=== PATIENT | female | born 1945 | race Caucasian/White ===

== ENCOUNTER 2016-12-06 12:17 | Inpatient (IN) ==
[2016-12-06] MEDS ORDERED: *HR* HYDROmorphone (PF) 1 MG/ML SYRINGE IVP ONE ×2 (16:09→23:12)
[2016-12-06] MEDS ORDERED: Naloxone 0.4 MG/ML INJ IVP PRN ×2 (16:10→20:09)
[2016-12-06] MEDS ORDERED: *HR* Morphine 2 MG/ML SYRINGE IVP PRN ×2 (16:10→20:09)
[2016-12-06] MEDS ORDERED: *HR* HYDROmorphone (PF) 1 MG/ML SYRINGE IVP PRN ×2 (16:10→19:23)
[2016-12-06] MEDS ORDERED: Ondansetron 4 MG/2 ML VIAL IVP PRN (16:10)
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
--- NOTE | 2016-12-06 16:47 | Orthopedic Consult Note ---
Date of Encounter: 12/06/16 Time of Encounter: 16:00 Assessment and Plan (1) Femur fracture, left Current Visit: Yes Status: Acute Patient is comfortable in bed. Plan discussed. Surgical intervention recommended due to severity of displacement and impact on daily activities. Consent reviewed and signed by the patient - all questions were addressed and answered. Risks versus benefits reviewed. Plan for Left hip TFN today with Discussed plan with . Continue NPO, evans catheter, NWB. Labs reviewed. Stable for OR. Cleared by hospitalist. Qualifiers: Encounter type: initial encounter Femur location: unspecified portion of femur Fracture type: closed Fracture morphology: unspecified fracture morphology Qualified Code(s): S72.92XA - Unspecified fracture of left femur, initial encounter for closed fracture History of Present Illness Chief complaint: Fall HPI: Ms. Castro is a 71 year old female, history of COPD, HTN, Asthma and GERD. She was transferred from [facility] after a mechanical fall this morning trying to do her laundry. She lives independently, and functions well. She ambulates on her own. No significant history of fractures or trauma. When she fell, she landed directly on her Left Hip, and heard a loud snap. She was in extreme pain, and unable to get up or weightbear due to her pain. She denies LOC, syncope or dizziness. She denies CP, SOB. She denies N/T into lower extremity. She currently has a evans catheter in place, obtaining EKG and labs Past Med Surg Social Fam HX - Past Medical History Medical history: asthma, COPD, GERD, hypertension Psychiatric history: depression - Past Surgical History Surgical History: appendectomy, cholecystectomy, hysterectomy, knee replacement - Social History Smoking Status: Former smoker Smokeless Tobacco Status: No Alcohol use: none Drug use: none Medications and Allergies Carvedilol [Coreg] 25 mg PO BID 12/06/16 [History] Duloxetine HCl [Cymbalta] 90 mg PO HS 12/06/16 [History] Fluticasone/Salmeterol [Advair 250-50 Diskus] 1 puff IH BID 12/06/16 [History] Ipratropium/Albuterol Neb [Duoneb] 3 ml IH Q4HR 12/06/16 [History] Pantoprazole Sodium [Protonix] 40 mg PO DAILY 12/06/16 [History] Ranitidine HCl [Acid Corporate Counsel] 150 mg PO BID 12/06/16 [History] Triamcinolone Acetonide 1 appl TP BID 12/06/16 [History] Allergies codeine Allergy (Verified 12/06/16 17:13) See Comments Patient states this medication "makes her heart race" All Systems Reviewed: A 10-system review of systems was performed and is negative for pertinent findings except as documented above in the HPI. - Constitutional Constitutional: as per HPI - Cardiovascular Cardiovascular: as per HPI Physical Exam - Constitutional Vitals: Temp Pulse Resp BP Pulse Ox 98.0 F 70 17 131/59 88 12/06/16 14:35 12/06/16 14:35 12/06/16 14:35 12/06/16 14:35 12/06/16 14:35 - Fracture left hip Location of fracture: Left Intertrochanteric femur Appearance: swelling, other Compartments: soft Distal extremity neurovascularly intact: Yes Proximal joint involvement: No Distal joint involvement: No Results - Labs Result Diagrams: 12/06/16 17:26 12/06/16 17:26 Labs: All other labs normal. - Diagnostic results Hip x-ray: report reviewed, image reviewed (Significantly displaced proximal femur and intertrochenteric fracture) Consult Discharge Plan - Plan Referrals: Lily Escoto CNP [Primary Care Provider] -
[2016-12-06 16:56] LABS: Bilirubin,Urine Small (Negative); Blood,Urine Large (Negative); Clarity,Urine Cloudy (Clear); Color,Urine Dark Yellow (Yellow); Glucose,Urine (UA) Normal (Normal); Ketones,Urine Negative (Negative); Leukocyte Esterase,Urine Negative (Negative); Nitrite,Urine Negative (Negative); Protein,Urine 30 mg/dL (Neg-Trace); Urobilinogen,Urine Normal (Normal)
[2016-12-06 17:01] LABS: Bacteria,Urine None Seen per hpf (None-Few); Hyaline Casts,Urine Moderate per lpf (None-Few); Squamous Epithelial Cell,Urine Many per lpf (None-Few); WBC,Urine 15-30 per hpf (0-3)
[2016-12-06 17:10] LABS: RBC,Urine 50-100 per hpf (0-3)
[2016-12-06] MEDS ORDERED: *HR* Propofol 200 MG/20 ML VIAL IVP ONE (17:18)
[2016-12-06] MEDS ORDERED: *HR* Succinylcholine 200 MG/10 ML VIAL IVP ONE (17:18)
[2016-12-06] MEDS ORDERED: *HR* FentaNYL (PF) 100 MCG/2 ML VIAL ONE (17:18)
[2016-12-06] MEDS ORDERED: Lidocaine -MPF 2% 2 ML VIAL ONE (17:18)
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
[2016-12-06 17:35] LABS: Basophils % 0.2 %; Eosinophils % 0.2 %; Hematocrit 36.9 % (35.3-44.9); Immature Granulocytes % 0.4 % (0-4); Lymphocytes # 0.7 K/mcL (0.6-4.6); Lymphocytes % 5.8 %; Mean Corpuscular HGB Conc 32.5 g/dL (31.6-35.5); Mean Corpuscular Hemoglobin 28.5 pg (28.0-33.3); Mean Corpuscular Volume 87.6 fL (83.0-100.0); Mean Platelet Volume 9.1 fL (9.4-12.4); Monocytes # 1.1 K/mcL (0.0-1.3); Monocytes % 8.6 %; Neutrophils # 10.3 K/mcL (1.6-8.9); Platelet Count 244 K/mcL (140-400); Red Blood Count 4.21 M/mcL (3.82-4.97); Red Cell Distribution Width 14.3 % (11.5-14.5); Segmented Neutrophils % 84.8 %
[2016-12-06 17:43] LABS: INR 1.1; Prothrombin Time 11.5 Seconds (9.4-12.1)
[2016-12-06 17:46] LABS: Activated Partial Thrombo Time 29.8 Seconds (26.0-36.0)
[2016-12-06 17:57] LABS: BUN/Creatinine Ratio 23 (6-26); Blood Urea Nitrogen 14 mg/dL (7-20); Calcium 8.9 mg/dL (8.6-10.8); Carbon Dioxide 21 mEq/L (19-29); Chloride 107 mEq/L (98-109); Glucose 123 mg/dL (70-99); Osmolality,Calculated 286 (280-300); Potassium 5.1 mEq/L (3.5-4.5); Sodium 137 mEq/L (136-145); eGFR For African Americans > 60 (> 60); eGFR For Non-African Americans > 60 (> 60)
[2016-12-06 17:58] LABS: Magnesium 2.1 mg/dL (1.6-2.6)
[2016-12-06] MEDS ORDERED: Ringers Solution, Lactated 1,000 ML IVC SCH ×2 (18:00→20:09)
[2016-12-06] MEDS ORDERED: Dexmedetomidine HCl 200 MCG/50 ML MLS IVC ONE (18:05)
[2016-12-06] MEDS ORDERED: Ketamine *HR* 500 MG/10 ML MDV ONE (18:11)
[2016-12-06] MEDS ORDERED: Ondansetron 4 MG/2 ML VIAL ONE (18:25)
[2016-12-06] MEDS ORDERED: Dexamethasone 4 MG/ML VIAL ONE (18:25)
--- NOTE | 2016-12-06 18:44 | Orthopedic Operative Note ---
Date of procedure: 12/06/16 Pre-op diagnosis: Displaced left subtrochanteric hip fracture Post-op diagnosis: same Procedure: Procedure: Left hip open reduction intramedullary nail fixation Estimated blood loss: 300 cc Hardware:Synthes 10 x 270 TFN, 100 helical blade, 36 distal locking bolt one super cable Procedural Notes: Fracture was identified and reduced with the super cable. Was a displaced subtotal. Operative procedure: The patient was brought to the operating room and placed on the operating room table. After general anesthesia was administered the well leg was place in the well leg betancourt and the operative leg was placed in the fracture leg betancourt. All pressure points were padded appropriately. The operative extremity was prepped and draped in the sterile surgical fashion patient received IV antibiotic prior to skin incision. A standard direct lateral approach was made over the entry point of the greater trochanter, the incision was made through the skin and subcutaneous tissue hemostasis was obtained with Bovie cautery. Using careful sharp dissection the fascia was identified and incised, flouroscopic assistance was used to identify the entry point. Incision was taken down distally at the level of the fracture site. The fracture was exposed and reduced with a super cable. This gained preliminary fixation. The guidepin was placed at the entry point using fluroscopic assistance, it was over reamed with the proximal reamer. The 10 x 270 trochanteric femoral nail was placed through the entry hole, across the fracture site into the distal fragment. the position was confirmed with fluroscopy. A guide pin was placed through the proximal locking guide from the lateral femur through the nail across the fracture site into the femoral head, it was over reamed with the reamer. The helical blade was placed over the guide pin through the nail into the femoral head, locked in place with the proximal locking bolt. Distal locking bolt was placed through the distal locking guide. position of hardware and fracture reduction found to be acceptable with fluroscopic assistance. The wound was irrigated. Fascia was closed with a running #2 PDS suture. The deep tissue was irrigated and closed deep with #1 PDS suture superficially with 0 PDS suture and skin was closed with skin rochelle. The patient was placed in a sterile dressing The patient was extubated and transferred to the recovery room in stable condition. Anesthesia: GETA Surgeon: Pablito Carrillo Condition: stable Disposition: PACU
[2016-12-06] MEDS ORDERED: *HR* Phenylephrine 10 MG/ML VIAL ONE (18:48)
[2016-12-06] MEDS ORDERED: *HR* Morphine 10 MG/ML VIAL ONE (18:59)
[2016-12-06] MEDS ORDERED: Calcium Gluconate 1,000 MG in D5% in Water 100 ML IVPB ONE (19:15)
--- NOTE | 2016-12-06 19:48 | Anesthesia Evaluation Post Op ---
Date of Encounter: 12/06/16 Time of Encounter: 19:46 - Vital Signs Vital Signs: Vital Signs/O2 Sat, Most Current Temp Pulse Resp BP Pulse Ox 100.8 F H 73 14 98/50 93 12/06/16 19:07 12/06/16 19:27 12/06/16 19:27 12/06/16 19:17 12/06/16 19:27 - Lungs Lungs: Clear Ascult./Percussion - Airway Airway: Non-obstructed - Cardiovascular Regular Rate - Mental Status Mental Status: Asleep with brisk response to light stimulation - Pain Pain Scale: 7 Pain Scale used: Numeric (1 - 10) - Nausea Vomiting Nausea Vomiting: Not Present - Hydration Hydration: NPO (has not been offered ice chips at this time), Has not voided - Discharge PostOp Status: Transfer Patient to floor
[2016-12-06] MEDS ORDERED: 0.9 % Sodium Chloride 500 ML IVC ONE (20:09)
[2016-12-06] MEDS: *HR* HYDROmorphone (PF) 1 MG/ML SYRINGE IVP PRN (21:12)
[2016-12-06] MEDS ORDERED: Artificial Tears SOLN 15 ML BOTTLE RIGHT EYE PRN (23:12)
[2016-12-06] MEDS ORDERED: Sod Borate/Boric acid/NaCl 118 ML IRRIG.SOLN OP ONE (23:12)
[2016-12-06] MEDS: ceFAZolin 2,000 MG in D5% in Water 100 ML IVPB SCH (23:51)
[2016-12-07] MEDS: Ipratropium/Albuterol Neb 3 ML IH SCH ×7 (00:03→23:46)
[2016-12-07] MEDS ORDERED: *HR* OxyCODONE Immed Rel 5 MG TABLET PO ONE (01:10)
[2016-12-07] MEDS: *HR* HYDROmorphone (PF) 1 MG/ML SYRINGE IVP PRN ×3 (04:43→16:37)
[2016-12-07] MEDS: Artificial Tears SOLN 15 ML BOTTLE RIGHT EYE PRN ×2 (04:44→08:32)
[2016-12-07 05:59] LABS: Hematocrit 28.8 % (35.3-44.9)
[2016-12-07 06:03] LABS: Hemoglobin 9.2 g/dL (11.5-15.4)
[2016-12-07] MEDS ORDERED: Tetracaine 0.5% OPTH 80 DROP/4 ML BOTTLE RIGHT EYE PRN (06:41)
--- NOTE | 2016-12-07 06:50 | Orthopedics Progress Note ---
Date of Encounter: 12/07/16 Time of Encounter: 06:50 Subjective Interval history: Patient was seen this morning doing well without complaints. Afebrile vital signs stable. Operative extremity: Neurovascularly intact Dressing clean dry and intact Calves nontender Assessment and plan: Continue with postoperative care Hematocrit 29 nonweightbearing left lower extremity Objective Vital signs: Vital Signs Temp Pulse Resp BP Pulse Ox 12/07/16 05:07 18 93 12/07/16 03:22 99 F 83 20 135/76 93 12/07/16 00:03 16 98 12/06/16 23:48 98.1 F 84 15 131/50 96 12/06/16 22:55 97.6 F 83 16 126/54 94 12/06/16 21:15 98.7 F 77 16 108/59 96 12/06/16 20:41 98.2 F 73 15 106/47 97 12/06/16 20:10 98 F 62 15 102/47 93 12/06/16 19:47 99.5 F 71 15 97/57 94 12/06/16 19:37 99.4 F 72 14 95/45 94 12/06/16 19:27 73 14 92/42 93 12/06/16 19:17 71 14 98/50 94 12/06/16 19:07 100.8 F H 72 16 94/44 96 12/06/16 14:35 98.0 F 70 17 131/59 88 12/06/16 14:03 97.8 F 73 16 131/54 92 Intake and Output 12/06/16 12/06/16 12/07/16 15:59 23:59 07:59 Intake Total 0 / 0 100 / 100 Output Total 100 / 100 300 / 300 Balance 0 / 0 -100 / -100 -200 / -200 Intake: IV Fluids 100 / 100 Ancef 2,000 MG In 100 / 100 Dextrose 5% 100 ML @ 200 mls/hr IVPB Q8HR [facility] Rx#: [id number] Oral 0 / 0 Output: Estimated Blood Loss 100 / 100 Catheter 300 / 300 Other: Weight 83.461 kg - Labs CBC & BMP: 12/07/16 05:42 12/06/16 17:26 Labs: Abnormal lab results WBC 12.2 K/mcL (4.3-11.1) H 12/06/16 17:26 Hgb 9.2 g/dL (11.5-15.4) L D 12/07/16 05:42 Hct 28.8 % (35.3-44.9) L 12/07/16 05:42 MPV 9.1 fL (9.4-12.4) L 12/06/16 17:26 Neutrophils # 10.3 K/mcL (1.6-8.9) H 12/06/16 17:26 Potassium 5.1 mEq/L (3.5-4.5) H 12/06/16 17:26 Glucose 123 mg/dL (70-99) H 12/06/16 17:26 Urine Clarity Cloudy (Clear) A 12/06/16 16:45 Ur Specific [facility] 1.030 (1.010-1.025) H 12/06/16 16:45 Urine Protein 30 mg/dL (Neg-Trace) H 12/06/16 16:45 Urine Blood Large (Negative) H 12/06/16 16:45 Urine Bilirubin Small (Negative) H 12/06/16 16:45 Urine Microscopic RBC 50-100 per hpf (0-3) H 12/06/16 16:45 Urine Microscopic WBC 15-30 per hpf (0-3) H 12/06/16 16:45 Ur Squamous Epith Cells Many per lpf (None-Few) H 12/06/16 16:45 Hyaline Casts Moderate per lpf (None-Few) H 12/06/16 16:45 - VTE Documentation of Mechanical Device: Venous foot pump, device Consult Discharge Plan - Plan Referrals: Lily Escoto, BODY AND FRAME TECHNICIAN [Primary Care Provider] -
[2016-12-07] MEDS: Budesonide/Formoterol 80/4.5 MDI IH SCH ×2 (07:59→19:57)
--- NOTE | 2016-12-07 08:01 | Internal Med Progress Note ---
<Javi Berrios - Last Filed: 12/07/16 09:46> Date of Encounter: 12/07/16 Time of Encounter: 08:01 - Assessment and plan (1) Femur fracture, left Current Visit: Yes Status: Acute Assessment and plan: Patient is status post left femur fracture repair. She is stable and participating with physical therapy. - Surgical wound is dressed and healing appropriately. - Pain control per orthopedic surgery - Continue physical therapy - SNF placement post discharge. Qualifiers: Encounter type: initial encounter Femur location: unspecified portion of femur Fracture type: closed Fracture morphology: unspecified fracture morphology Qualified Code(s): S72.92XA - Unspecified fracture of left femur, initial encounter for closed fracture (2) COPD (chronic obstructive pulmonary disease) Current Visit: Yes Status: Acute Assessment and plan: Stable. Continue home medications. - Patient is tolerating room air. Qualifiers: COPD type: unspecified COPD Qualified Code(s): J44.9 - Chronic obstructive pulmonary disease, unspecified (3) HTN (hypertension) Current Visit: Yes Status: Chronic Assessment and plan: Hold antihypertensives as patient's blood pressure is 99/65 currently. - Likely secondary to volume loss with recent surgery - Restart beta luke when necessary Qualifiers: Hypertension type: essential hypertension Qualified Code(s): I10 - Essential (primary) hypertension (4) Obesity (BMI 30.0-34.9) Current Visit: Yes Status: Chronic Assessment and plan: Patient's BMI is 32.6. Weight loss and dietary modifications will improve patient's long-term health. (5) UTI (urinary tract infection) Current Visit: Yes Status: Acute Assessment and plan: Patient was initially treated for a symptomatic UTI. Currently asymptomatic. - Patient has completed dose of Rocephin and is currently on Ancef. - We will complete 3 days of antibiotic coverage. Qualifiers: Urinary tract infection type: acute cystitis Hematuria presence: without hematuria Qualified Code(s): N30.00 - Acute cystitis without hematuria (6) DVT prophylaxis Current Visit: Yes Status: Acute Assessment and plan: Continue subcutaneous Lovenox. - Patient will need to continue DVT prophylaxis roughly 28 days with recent long bone fracture and repair. - Subjective Interval history: Ms. Castro has been seen and evaluated patient bedside this morning. She is alert awake interactive in no acute distress. She will he complains of pain in her left thigh which she ranks it a 9 out of 10 this morning while eating breakfast. She is tolerating sitting up in a chair and tolerating by mouth intake. She denies any bowel movements since her procedure last evening. She is urinating appropriately. Denies any fevers chills nausea vomiting diarrhea constipation, chest pain, palpitations, abdominal discomfort. She does complain of right eye irritation as a burning feeling. She said this started status post procedure last evening and she underwent eyewash last evening and eyedrops. She is awaiting ocular pain reliever. She denies any blurry vision, trouble with eye movements, reddening of the sclera or pain when exposed to light. - Constitutional Vitals: Temp Pulse Resp BP Pulse Ox 98.2 F 94 16 99/65 94 12/07/16 07:12 12/07/16 07:12 12/07/16 07:12 12/07/16 07:12 12/07/16 07:12 General appearance: Present: cooperative, A&O X 3, no acute distress, obese, answers questions appropriately - Head Head exam: Present: atraumatic, normocephalic - Eye Eye exam: Present: EOMI, normal appearance, periorbital swelling (Minor periorbital swelling), PERRL, conjuntiva pink. Absent: conjunctival injection, nystagmus, periorbital tenderness, scleral icterus Pupils: Present: normal accommodation - ENT ENT exam: Present: mucous membranes moist - Neck Neck exam general surgery: Present: supple, trachea midline. Absent: lymphadenopathy - Respiratory Respiratory exam: Present: CTAB. Absent: accessory muscle use, rales, rhonchi, wheezes - Cardiovascular Cardiovascular exam: Present: RRR, +S1, +S2. Absent: diastolic murmur, gallop, rubs, systolic murmur - GI/Abdominal GI/Abdominal exam: Present: normal bowel sounds, soft, no peritoneal signs. Absent: distended, tenderness - Extremities Exam Extremities exam: Present: normal capillary refill, warm, radial pulses palpable and symetrical. Absent: calf tenderness (There is edema to the left thigh and a recent surgical incision that is bandaged and healing appropriately without signs of drainage.), cyanotic, pedal edema Additional comments: Neurovascularly intact upon examination this morning - Neurological Exam Neurological exam: Present: CN II-XII intact, oriented X3, no focal deficits. Absent: pronater drift, facial droop, speech deficit - Psychiatric Psychiatric exam: Present: normal affect, normal mood Internal Medicine: Result - Labs CBC & Chem 7: 12/07/16 05:42 12/06/16 17:26 Labs: Short CBC 12/06/16 12/07/16 Range/Units 17:26 05:42 WBC 12.2 H (4.3-11.1) K/mcL Hgb 12.0 9.2 L D (11.5-15.4) g/dL Hct 36.9 28.8 L (35.3-44.9) % Plt Count 244 (140-400) K/mcL Neutrophils # 10.3 H (1.6-8.9) K/mcL BMP 12/06/16 17:26 Sodium 137 Potassium 5.1 H Chloride 107 Carbon Dioxide 21 BUN 14 Creatinine 0.62 Glucose 123 H Calcium 8.9 Urine 12/06/16 Range/Units 16:45 Urine Color Dark Yellow (Yellow) Urine Clarity Cloudy A (Clear) Urine pH 6.0 (5.0-8.0) pH Units Ur Specific [place] 1.030 H (1.010-1.025) Urine Protein 30 H (Neg-Trace) mg/dL Urine Glucose (UA) Normal (Normal) mg/dL - ABG Interpretation ABG results: PT/INR, D-dimer PT 11.5 Seconds (9.4-12.1) 12/06/16 17:26 - Impressions Impressions Hip X-Ray 12/06/16 15:40 IMPRESSION: Comminuted fracture proximal left femur with moderate angulation and moderate shortening and over riding of the main oblique fracture plane through the proximal shaft left femur. D/ / Javi Woods MD / Javi Woods MD Interpreting Provider: Javi Woods MD Hip X-Ray 12/06/16 17:50 IMPRESSION: Anatomic alignment of left hip fracture following ORIF. D/ / 12/06/2016 20:01:17 Dallas Sharma MD / Gisselle Fraire Interpreting Provider: Dallas Sharma MD Fluoroscopy 12/06/16 18:10 IMPRESSION: Intraprocedural fluoroscopic spot images as above. See separate procedure report for more information. D/ / Dallas Sharma MD / Dallas Sharma MD Interpreting Provider: Dallas Sharma MD Hip X-Ray 12/06/16 18:10 IMPRESSION: Intraprocedural fluoroscopic spot images as above. See separate procedure report for more information. D/ / Dallas Sharma MD / Dallas Sharma MD Interpreting Provider: Dallas Sharma MD - VTE Documentation of Mechanical Device: Venous foot pump, device Consult Discharge Plan - Plan Referrals: Lily Escoto CNP [Primary Care Provider] - <Iam Armstrong - Last Filed: 12/07/16 14:37> Date of Encounter: 12/07/16 - Constitutional Vitals: Temp Pulse Resp BP Pulse Ox 97.9 F 88 15 114/68 92 12/07/16 11:53 12/07/16 11:53 12/07/16 11:53 12/07/16 11:53 12/07/16 11:53 Internal Medicine: Result - Labs CBC & Chem 7: 12/07/16 05:42 12/06/16 17:26 Labs: Short CBC 12/06/16 12/07/16 Range/Units 17:26 05:42 WBC 12.2 H (4.3-11.1) K/mcL Hgb 12.0 9.2 L D (11.5-15.4) g/dL Hct 36.9 28.8 L (35.3-44.9) % Plt Count 244 (140-400) K/mcL Neutrophils # 10.3 H (1.6-8.9) K/mcL BMP 12/06/16 17:26 Sodium 137 Potassium 5.1 H Chloride 107 Carbon Dioxide 21 BUN 14 Creatinine 0.62 Glucose 123 H Calcium 8.9 Urine 12/06/16 Range/Units 16:45 Urine Color Dark Yellow (Yellow) Urine Clarity Cloudy A (Clear) Urine pH 6.0 (5.0-8.0) pH Units Ur Specific [place] 1.030 H (1.010-1.025) Urine Protein 30 H (Neg-Trace) mg/dL Urine Glucose (UA) Normal (Normal) mg/dL - ABG Interpretation ABG results: PT/INR, D-dimer PT 11.5 Seconds (9.4-12.1) 12/06/16 17:26 - Impressions Impressions Hip X-Ray 12/06/16 15:40 IMPRESSION: Comminuted fracture proximal left femur with moderate angulation and moderate shortening and over riding of the main oblique fracture plane through the proximal shaft left femur. D/ / Javi Woods MD / Javi Woods MD Interpreting Provider: Javi Woods MD Hip X-Ray 12/06/16 17:50 IMPRESSION: Anatomic alignment of left hip fracture following ORIF. D/ / 12/06/2016 20:01:17 Dallas Sharma MD / Gisselle Fraire Interpreting Provider: Dallas Sharma MD Fluoroscopy 12/06/16 18:10 IMPRESSION: Intraprocedural fluoroscopic spot images as above. See separate procedure report for more information. D/ / Dallas Sharma MD / Dallas Sharma MD Interpreting Provider: Dallas Sharma MD Hip X-Ray 12/06/16 18:10 IMPRESSION: Intraprocedural fluoroscopic spot images as above. See separate procedure report for more information. D/ / Dallas Sharma MD / Dallas Sharma MD Interpreting Provider: Dallas Sharma MD - Attending Attestation I examined this patient and my medical decision-making was reviewed with the Resident Physician, Dr Berrios. I agree with the documented findings, disposition and treatment plan as described except to the extent set forth below. He patient reports worsening left leg 10/10 pain. Getting worse since this morning. Not significantly improved with a pain pill. She is POD 1 after left ORIF for femur fracture. On exam she is in mild distress due to pain her left thigh as significantly swollen about a time and a half bigger in circumference compared to the right. There is tenderness and firm and tender to palpation. The surgical incision is covered with dressing appears clean and dry and intact. Laboratory data: Hemoglobin dropped from 12 on admission to 9.2 today. Plan: Concerned of hematoma and possible development of compartment syndrome given intractable pain and significant leg swelling, firmness to palpation and tenderness with significant hemoglobin drop. She has good dorsalis pedis pulses bilaterally and good capillary refill. I will order further imaging studies and a stat CBC and will discuss the case with the orthopedist. We will follow clinically, neurologically and imaging studies closely.
[2016-12-07] MEDS: Famotidine 20 MG TABLET PO SCH ×2 (08:29→21:14)
[2016-12-07] MEDS: *HR* Enoxaparin 30 MG/0.3 ML SYRINGE SQ SCH ×2 (08:29→16:36)
[2016-12-07] MEDS: Pantoprazole 40 MG VIAL IVP SCH (08:29)
[2016-12-07] MEDS: ceFAZolin 2,000 MG in D5% in Water 100 ML IVPB SCH (08:30)
[2016-12-07] MEDS: *HR* OxyCODONE Immed Rel 5 MG TABLET PO PRN ×3 (08:30→21:13)
[2016-12-07] MEDS ORDERED: Pantoprazole 40 MG VIAL IVP SCH (09:00)
--- NOTE | 2016-12-07 10:45 | Electrocardiograph Report ---
[place] [id number] Test Date: 2016-12-06 Pat Name: Nicole Castro Department: 114 Room: [facility] Gender: F [employer] In[employer]: : 1945 Requested By: Chelsie Goodwin Order Number: [id number] Reading MD: Steffany Cuevas Measurements Intervals [place] Rate: 71 P: 9 [place]: 138 QRS: 25 QRSD: 90 T: 53 QT: 365 QTc: 387 Interpretive Statements SINUS RHYTHM WITH SINUS ARRHYTHMIA NONSPECIFIC T-WAVE ABNORMALITY Electronically Signed On 12-07-2016 10:43:21 EDT by Steffany Cuevas
[2016-12-07 15:02] LABS: Basophils % 0.1 %; Hematocrit 28.3 % (35.3-44.9); Hemoglobin 9.2 g/dL (11.5-15.4); Immature Granulocytes % 0.8 % (0-4); Lymphocytes # 1.1 K/mcL (0.6-4.6); Lymphocytes % 6.5 %; Mean Corpuscular HGB Conc 32.5 g/dL (31.6-35.5); Mean Corpuscular Hemoglobin 28.6 pg (28.0-33.3); Mean Corpuscular Volume 87.9 fL (83.0-100.0); Mean Platelet Volume 9.6 fL (9.4-12.4); Monocytes # 2.6 K/mcL (0.0-1.3); Monocytes % 15.3 %; Neutrophils # 13.2 K/mcL (1.6-8.9); Platelet Count 225 K/mcL (140-400); Red Blood Count 3.22 M/mcL (3.82-4.97); Red Cell Distribution Width 13.9 % (11.5-14.5); Segmented Neutrophils % 77.3 %
[2016-12-07] MEDS ORDERED: Chloraseptic Spray 177 ML BOTTLE MM PRN (19:43)
[2016-12-08] MEDS: Ipratropium/Albuterol Neb 3 ML IH SCH ×6 (03:55→23:56)
[2016-12-08] MEDS: *HR* HYDROmorphone (PF) 1 MG/ML SYRINGE IVP PRN (04:11)
[2016-12-08] MEDS: Ondansetron 4 MG/2 ML VIAL IVP PRN ×2 (04:44→21:03)
[2016-12-08 05:29] LABS: Basophils % 0.1 %; Eosinophils % 0.1 %; Hematocrit 25.4 % (35.3-44.9); Hemoglobin 8.3 g/dL (11.5-15.4); Immature Granulocytes % 0.7 % (0-4); Lymphocytes # 1.3 K/mcL (0.6-4.6); Lymphocytes % 11.5 %; Mean Corpuscular HGB Conc 32.7 g/dL (31.6-35.5); Mean Corpuscular Hemoglobin 28.5 pg (28.0-33.3); Mean Corpuscular Volume 87.3 fL (83.0-100.0); Mean Platelet Volume 9.4 fL (9.4-12.4); Monocytes # 1.5 K/mcL (0.0-1.3); Monocytes % 14.1 %; Platelet Count 214 K/mcL (140-400); Red Blood Count 2.91 M/mcL (3.82-4.97); Red Cell Distribution Width 14.2 % (11.5-14.5); Segmented Neutrophils % 73.5 %
[2016-12-08 05:48] LABS: BUN/Creatinine Ratio 24 (6-26); Blood Urea Nitrogen 16 mg/dL (7-20); Calcium 8.3 mg/dL (8.6-10.8); Carbon Dioxide 27 mEq/L (19-29); Chloride 99 mEq/L (98-109); Glucose 135 mg/dL (70-99); Osmolality,Calculated 279 (280-300); Potassium 4.3 mEq/L (3.5-4.5); Sodium 133 mEq/L (136-145); eGFR For African Americans > 60 (> 60); eGFR For Non-African Americans > 60 (> 60)
[2016-12-08] MEDS: *HR* Enoxaparin 30 MG/0.3 ML SYRINGE SQ SCH (05:50)
[2016-12-08] MEDS ORDERED: Furosemide 20 MG/2 ML VIAL IVP ONE (05:53)
[2016-12-08] MEDS: Budesonide/Formoterol 80/4.5 MDI IH SCH ×2 (07:34→19:58)
[2016-12-08] MEDS: Pantoprazole 40 MG VIAL IVP SCH (07:37)
[2016-12-08] MEDS: Famotidine 20 MG TABLET PO SCH ×2 (07:38→21:03)
[2016-12-08] MEDS: *HR* OxyCODONE Immed Rel 5 MG TABLET PO PRN ×3 (07:46→21:03)
--- NOTE | 2016-12-08 08:08 | Orthopedics Progress Note ---
Date of Encounter: 12/08/16 Time of Encounter: 08:07 Subjective Interval history: Patient was seen this morning doing well without complaints. Afebrile vital signs stable. Operative extremity: Neurovascularly intact Dressing clean dry and intact Calves nontender Assessment and plan: Continue with postoperative care Stable for discharge Objective Vital signs: Vital Signs Temp Pulse Resp BP Pulse Ox 12/08/16 07:35 16 83 12/08/16 06:51 97.9 F 94 16 117/68 95 12/08/16 03:55 16 94 12/08/16 00:11 97.7 F 98 16 115/63 95 12/07/16 23:46 18 86 12/07/16 20:03 97.9 F 94 16 118/55 100 12/07/16 19:57 16 90 12/07/16 15:19 15 93 12/07/16 14:41 98.1 F 86 15 118/58 93 12/07/16 11:53 97.9 F 88 15 114/68 92 12/07/16 11:51 16 94 12/07/16 11:26 16 94 12/07/16 08:48 94 Intake and Output 12/07/16 12/08/16 12/08/16 23:59 07:59 15:59 Intake Total 60 / 60 Output Total 300 / 300 Balance 60 / 60 -300 / -300 Intake: Oral 60 / 60 Output: Urine 300 / 300 Other: Meal Dinner Percent of Meal Consumed 5% # Voids 1 - Labs CBC & BMP: 12/08/16 05:03 12/08/16 05:03 Labs: Abnormal lab results RBC 2.91 M/mcL (3.82-4.97) L 12/08/16 05:03 Hgb 8.3 g/dL (11.5-15.4) L 12/08/16 05:03 Hct 25.4 % (35.3-44.9) L 12/08/16 05:03 Monocytes # 1.5 K/mcL (0.0-1.3) H 12/08/16 05:03 Sodium 133 mEq/L (136-145) L 12/08/16 05:03 Glucose 135 mg/dL (70-99) H 12/08/16 05:03 Calculated Osmolality 279 (280-300) L 12/08/16 05:03 Calcium 8.3 mg/dL (8.6-10.8) L 12/08/16 05:03 Urine Clarity Cloudy (Clear) A 12/06/16 16:45 Ur Specific [place] 1.030 (1.010-1.025) H 12/06/16 16:45 Urine Protein 30 mg/dL (Neg-Trace) H 12/06/16 16:45 Urine Blood Large (Negative) H 12/06/16 16:45 Urine Bilirubin Small (Negative) H 12/06/16 16:45 Urine Microscopic RBC 50-100 per hpf (0-3) H 12/06/16 16:45 Urine Microscopic WBC 15-30 per hpf (0-3) H 12/06/16 16:45 Ur Squamous Epith Cells Many per lpf (None-Few) H 12/06/16 16:45 Hyaline Casts Moderate per lpf (None-Few) H 12/06/16 16:45 - VTE Documentation of Mechanical Device: Venous foot pump, device Consult Discharge Plan - Plan Referrals: Lily Escoto, [facility] [Primary Care Provider] -
[2016-12-08] MEDS ORDERED: 0.9 % Sodium Chloride 250 ML ONE (09:14)
--- NOTE | 2016-12-08 10:04 | Internal Med Progress Note ---
<Javi Berrios - Last Filed: 12/08/16 10:00> Date of Encounter: 12/08/16 Time of Encounter: 10:01 - Assessment and plan (1) Femur fracture, left Current Visit: Yes Status: Acute Assessment and plan: Patient is status post left femur fracture repair. She is stable and participating with physical therapy. Examination demonstrates increased and thigh diameter compared to yesterday, increased in lateral thigh fullness. - Surgical wound is dressed without drainage. - CT of left hip and thigh performed today - Pain control per orthopedic surgery - Continue physical therapy - SNF placement post discharge. Qualifiers: Encounter type: initial encounter Femur location: unspecified portion of femur Fracture type: closed Fracture morphology: unspecified fracture morphology Qualified Code(s): S72.92XA - Unspecified fracture of left femur, initial encounter for closed fracture (2) Acute blood loss anemia Current Visit: Yes Status: Acute Assessment and plan: Patient's hemoglobin is 8.3 this morning down from 9.2 yesterday. Likely secondary to left femur fracture. Lovenox is been held this morning and she is receiving 1 unit PRBCs. - Left thigh diameter has increased compared to yesterday, patient complains of continued left thigh pain. - To be performed: CT of the left hip and femur for evaluation of swelling. - Neurovascularly intact in the bilateral lower extremities. (3) COPD (chronic obstructive pulmonary disease) Current Visit: Yes Status: Acute Assessment and plan: Stable. Continue home medications. - Patient is tolerating room air. Qualifiers: COPD type: unspecified COPD Qualified Code(s): J44.9 - Chronic obstructive pulmonary disease, unspecified (4) HTN (hypertension) Current Visit: Yes Status: Chronic Assessment and plan: Hold antihypertensives, as blood pressure continues to be stable. - Likely secondary to volume loss with recent surgery - Restart beta luke when necessary Qualifiers: Hypertension type: essential hypertension Qualified Code(s): I10 - Essential (primary) hypertension (5) Obesity (BMI 30.0-34.9) Current Visit: Yes Status: Chronic Assessment and plan: Patient's BMI is 32.6. Weight loss and dietary modifications will improve patient's long-term health. (6) UTI (urinary tract infection) Current Visit: Yes Status: Acute Assessment and plan: Patient was initially treated for a symptomatic UTI. Currently asymptomatic. - Patient has completed dose of Rocephin and is currently on Ancef. - We will complete 3 days of antibiotic coverage. Today is day 3 Qualifiers: Urinary tract infection type: acute cystitis Hematuria presence: without hematuria Qualified Code(s): N30.00 - Acute cystitis without hematuria (7) DVT prophylaxis Current Visit: Yes Status: Acute Assessment and plan: Hold the subcutaneous Lovenox secondary to acute blood loss anemia. Patient has pedal pump bilaterally. - Patient will need to continue DVT prophylaxis roughly 28 days with recent long bone fracture and repair. - Subjective Interval history: Ms. Castro has been seen and evaluated patient bedside this morning. She is alert awake interactive in no acute distress. She does complain of left thigh pain which she ranks as a 7 out of 10 on the pain scale. She does feel there has been increased swelling in her left thigh pain down to her knee. She is concerned that she is receiving blood and does not want to be discharged until she is completely stable. She denies any blurry vision, lightheadedness, tachycardia, chest pain, palpitations abdominal pain nausea vomiting. She is currently tolerating pedal pumps. She denies calf pain. - Constitutional Vitals: Temp Pulse Resp BP Pulse Ox 98.0 F 97 16 120/51 94 12/08/16 09:45 12/08/16 09:45 12/08/16 09:45 12/08/16 09:45 12/08/16 09:45 General appearance: Present: cooperative, A&O X 3, no acute distress, obese, answers questions appropriately - Head Head exam: Present: atraumatic, normocephalic - Eye Eye exam: Present: PERRL, conjuntiva pink, sclera anicteric Pupils: Present: PERRL - Neck Neck exam general surgery: Present: supple, trachea midline. Absent: lymphadenopathy - Respiratory Respiratory exam: Present: CTAB. Absent: accessory muscle use, rales, rhonchi, wheezes - Cardiovascular Cardiovascular exam: Present: RRR, +S1, +S2. Absent: diastolic murmur, gallop, rubs, systolic murmur - GI/Abdominal GI/Abdominal exam: Present: normal bowel sounds, soft, no peritoneal signs. Absent: distended, tenderness - Extremities Exam Extremities exam: Present: warm, radial pulses palpable and symetrical Additional comments: Left thigh demonstrates swelling, ecchymosis and edema extends down to left foot. Lateral surgical site is dressed without drainage or seepage. Neurovascularly intact in all 4 extremities. 2+ dorsal pedal and posterior tibial pulses bilateral. - Neurological Exam Neurological exam: Present: alert, no focal deficits - Psychiatric Psychiatric exam: Present: normal affect, normal mood Internal Medicine: Result - Labs CBC & Chem 7: 12/08/16 05:03 12/08/16 05:03 Labs: Short CBC 12/07/16 12/08/16 Range/Units 14:43 05:03 WBC 17.1 H 10.8 (4.3-11.1) K/mcL Hgb 9.2 L 8.3 L (11.5-15.4) g/dL Hct 28.3 L 25.4 L (35.3-44.9) % Plt Count 225 214 (140-400) K/mcL Neutrophils # 13.2 H 8.0 (1.6-8.9) K/mcL BMP 12/08/16 05:03 Sodium 133 L Potassium 4.3 Chloride 99 Carbon Dioxide 27 BUN 16 Creatinine 0.68 Glucose 135 H Calcium 8.3 L - ABG Interpretation ABG results: PT/INR, D-dimer PT 11.5 Seconds (9.4-12.1) 12/06/16 17:26 - Impressions Impressions Hip X-Ray 12/06/16 17:50 IMPRESSION: Anatomic alignment of left hip fracture following ORIF. D/ / 12/06/2016 20:01:17 Dallas Sharma MD / Gisselle Fraire Interpreting Provider: Dallas Sharma MD - VTE Documentation of Mechanical Device: Venous foot pump, device Consult Discharge Plan - Plan Referrals: Lily Escoto CNP [Primary Care Provider] - Kendy Salazar MD [Partnered Physician] - 03/28/17 10:20 am <Iam Armstrong - Last Filed: 12/08/16 18:48> Date of Encounter: 12/08/16 - Constitutional Vitals: Temp Pulse Resp BP Pulse Ox 98.1 F 87 16 114/73 98 12/08/16 15:06 12/08/16 15:06 12/08/16 15:06 12/08/16 15:06 12/08/16 15:06 Internal Medicine: Result - Labs CBC & Chem 7: 12/08/16 05:03 12/08/16 05:03 Labs: Short CBC 12/08/16 Range/Units 05:03 WBC 10.8 (4.3-11.1) K/mcL Hgb 8.3 L (11.5-15.4) g/dL Hct 25.4 L (35.3-44.9) % Plt Count 214 (140-400) K/mcL Neutrophils # 8.0 (1.6-8.9) K/mcL BMP 12/08/16 05:03 Sodium 133 L Potassium 4.3 Chloride 99 Carbon Dioxide 27 BUN 16 Creatinine 0.68 Glucose 135 H Calcium 8.3 L - ABG Interpretation ABG results: PT/INR, D-dimer PT 11.5 Seconds (9.4-12.1) 12/06/16 17:26 - Impressions Impressions Lower Extremity CT 12/08/16 09:59 IMPRESSION: 1. ORIF femoral fracture without complication. 2. Total knee arthroplasty without complication. 3. Nonspecific lateral subcutaneous edema likely postsurgical. No localized hematoma. D/ / 12/08/2016 11:40:26 Morgan Mitchell MD / heydi Interpreting Provider: Morgan Mitchell MD - Attending Attestation I examined this patient and my medical decision-making was reviewed with the Resident Physician, Dr Berrios. I agree with the documented findings, disposition and treatment plan as described except to the extent set forth below. The patient's left thigh is slightly more swollen. There is a 1. hemoglobin drop from yesterday. We will obtain CT of the left lower extremity to evaluate for development of hematoma. Agree with transfusing 1 unit of PRBC. Monitor clinically. Pain control. Resume ceftriaxone for UTI.
[2016-12-09] MEDS: *HR* HYDROmorphone (PF) 1 MG/ML SYRINGE IVP PRN (00:33)
[2016-12-09 03:19] LABS: Basophils % 0.3 %; Eosinophils # 0.1 K/mcL (0.0-0.6); Eosinophils % 0.7 %; Hematocrit 25.7 % (35.3-44.9); Hemoglobin 8.5 g/dL (11.5-15.4); Immature Granulocytes % 0.8 % (0-4); Lymphocytes # 1.2 K/mcL (0.6-4.6); Lymphocytes % 11.1 %; Mean Corpuscular HGB Conc 33.1 g/dL (31.6-35.5); Mean Corpuscular Hemoglobin 28.3 pg (28.0-33.3); Mean Corpuscular Volume 85.7 fL (83.0-100.0); Mean Platelet Volume 9.6 fL (9.4-12.4); Monocytes % 17.6 %; Neutrophils # 7.7 K/mcL (1.6-8.9); Nucleated Red Blood Cells 0.2 /100 WBC (0); Platelet Count 188 K/mcL (140-400); Red Cell Distribution Width 14.5 % (11.5-14.5); Segmented Neutrophils % 69.5 %
[2016-12-09 03:39] LABS: Alanine Aminotransferase 20 Units/L (0-55); Albumin 2.5 g/dL (3.5-5.0); Albumin/Globulin Ratio 0.9 (1.1-2.2); Alkaline Phosphatase 48 Units/L (38-126); Aspartate Amino Transferase 35 Units/L (5-34); BUN/Creatinine Ratio 25 (6-26); Bilirubin,Total 0.7 mg/dL (0.2-1.2); Blood Urea Nitrogen 15 mg/dL (7-20); Calcium 8.2 mg/dL (8.6-10.8); Carbon Dioxide 28 mEq/L (19-29); Chloride 100 mEq/L (98-109); Globulin 2.9 g/dL (2.4-3.5); Glucose 113 mg/dL (70-99); Osmolality,Calculated 280 (280-300); Potassium 4.4 mEq/L (3.5-4.5); Sodium 134 mEq/L (136-145); Total Protein 5.4 g/dL (6.0-8.3); eGFR For African Americans > 60 (> 60); eGFR For Non-African Americans > 60 (> 60)
[2016-12-09] MEDS: Ipratropium/Albuterol Neb 3 ML IH SCH (04:29)
[2016-12-09] MEDS: Pantoprazole 40 MG VIAL IVP SCH (08:21)
[2016-12-09] MEDS: Famotidine 20 MG TABLET PO SCH (08:21)
[2016-12-09] MEDS: *HR* OxyCODONE Immed Rel 5 MG TABLET PO PRN (08:21)
[2016-12-09] MEDS: *HR* Enoxaparin 30 MG/0.3 ML SYRINGE SQ SCH (08:22)
--- NOTE | 2016-12-09 09:19 | Discharge Summary ---
<Javi Berrios Marcel - Last Filed: 12/09/16 16:18> Date of Encounter: 12/09/16 Time of Encounter: 08:53 - Discharge Diagnosis (1) Femur fracture, left Priority: Primary Status: Acute Qualifiers: Encounter type: initial encounter Femur location: unspecified portion of femur Fracture type: closed Fracture morphology: unspecified fracture morphology Qualified Code(s): S72.92XA - Unspecified fracture of left femur, initial encounter for closed fracture (2) Acute blood loss anemia Priority: Primary Status: Acute (3) COPD (chronic obstructive pulmonary disease) Priority: Secondary Status: Acute Qualifiers: COPD type: unspecified COPD Qualified Code(s): J44.9 - Chronic obstructive pulmonary disease, unspecified (4) HTN (hypertension) Priority: Secondary Status: Chronic Qualifiers: Hypertension type: essential hypertension Qualified Code(s): I10 - Essential (primary) hypertension (5) Obesity (BMI 30.0-34.9) Priority: Secondary Status: Chronic (6) UTI (urinary tract infection) Priority: Primary Status: Acute Qualifiers: Urinary tract infection type: acute cystitis Hematuria presence: without hematuria Qualified Code(s): N30.00 - Acute cystitis without hematuria - Discharge Medications Prescriptions: OxyCODONE Immed Rel [Roxicodone 5 MG] 5 mg PO Q4HR PRN #30 tablet PRN Reason: Mild Pain Aspirin 325 mg PO DAILY #21 tablet Cefdinir [Omnicef] 300 mg PO BID #4 capsule Home Medications: Carvedilol [Coreg] 25 mg PO BID 12/06/16 [History] Duloxetine HCl [Cymbalta] 90 mg PO HS 12/06/16 [History] Fluticasone/Salmeterol [Advair 250-50 Diskus] 1 puff IH BID 12/06/16 [History] Ipratropium/Albuterol Neb [Duoneb] 3 ml IH Q4HR 12/06/16 [History] Pantoprazole Sodium [Protonix] 40 mg PO DAILY 12/06/16 [History] Ranitidine HCl [Acid Director Immunology] 150 mg PO BID 12/06/16 [History] Triamcinolone Acetonide 1 appl TP BID 12/06/16 [History] Aspirin 325 mg PO DAILY #21 tablet 12/09/16 [Rx] Cefdinir [Omnicef] 300 mg PO BID #4 capsule 12/09/16 [Rx] OxyCODONE Immed Rel [Roxicodone 5 MG] 5 mg PO Q4HR PRN #30 tablet 12/09/16 [Rx] Allergies/Adverse Reactions: Allergies codeine Allergy (Verified 12/06/16 17:13) See Comments Patient states this medication "makes her heart race" Procedures/tests Complete & Pending: Procedures Performed prior 72 hours Category Date Time Status CT LE LT wo con [CT] Stat Cat Scan 12/08/16 09:59 Completed ECG 12 lead ECG [ECG] Stat Y 12/06/16 16:10 Completed Date of admission: 12/06/16 17:14 Primary care physician: SAILAJA Min Consults: 12/06/16 20:09 Consult to Occupational Therapy [CONS] Routine Comment: Evaluate, develop and implement POC Reason for Consult: postop Consult to Orthopedic Navigator [CONS] [CONS] Routine Consult to Physical Therapy [CONS] Routine Comment: Evaluate, develop and implement POC Reason for Consult: non weight bearing left lower extremity RT Post Op Consult [CONS] Routine Discharging clinician: Javi Berrios Anticipated date of discharge: 12/09/16 - Patient Status Disposition: Transfer SNF Condition: Good Functional capacity at discharge: uses cane/walker Overall status at discharge: patient is progressing back to baseline - Discharge Instructions Follow Up With: Leelee Gonzalez PAC [Physician Grain Elevator Clerk] - 12/15/16 8:30 am Lily Escoto CNP [Primary Care Provider] - Kendy Salazar MD [Partnered Physician] - 03/28/17 10:20 am Additional Instructions: Discharge Instructions: Total Hip Replacement Please call [facility] ([phone]), your Primary Care Physician, or report to the Emergency Room if you have any of the following symptoms: Nausea, vomiting, fever greater that 101.5, swelling, chest pain, shortness of breath, increased pain/redness/drainage/odor for your incision site, numbness/ tingling, or any other concerning symptoms. ACTIVITY: You may progress as tolerated under the guidance of your physical therapist. You do not need to sleep with a pillow between your legs. You can also sleep on the operative side or on your stomach. Non weight bearing to left lower extremity. MEDICATIONS: Upon discharge resume your home medications. Take all the medications as prescribed. Take a stool softener if taking narcotic pain medications. Stool softeners are only effective if you drink enough fluids. Drink 6-8 glass of water or fluids a day, unless this is not allowed for another health problem. Despite using stool softeners, if you haven't had a bowel movement in 3 days, please switch to a gentle laxative. Gentle laxatives are sold over the counter. You should have a bowel movement within 24 hours, if not call the office. You will be discharged from the hospital with a prescription for pain medication. You are encouraged to decrease the use of narcotic pain medication as tolerated. Should you require a refill, please call the office. [facility] prescribes narcotic pain medication for only 4-6 weeks after surgery. If you require pain medication beyond this time period, you may be referred to your Primary Care Physician or to the Pain Clinic for further evaluation. Plan ahead for refills on pain medication as many narcotics either need to be picked up at the office or mailed. It is best to call 48-72 hours in advance of needing a prescription refill so you don't run out of medication. To help control the post-operative pain, you may take NSAIDs (Aleve,Advil, Motrin, ibuprofen, naprosyn) or Tylenol as prescribed on the bottle in addition to the pain medication. ANTICOAGULATION (blood thinners): Continue your Aspirin, Lovenox or Coumadin as prescribed to help prevent a blood clot in the leg or in the lungs. As long as your incision remains dry and you tolerate the NSAIDs (Aleve, Advil, Motrin, Ibuprofen, Naprosyn), it is OK to use the NSAIDS while you are taking your anticoagulation medication. Should your incision start to drain, stop the NSAID and contact our office. Common symptoms of blood clot in the legs include: localized pain, swelling, calf tenderness, redness or discoloration of the skin. Blood clot in the lung symptoms include: shortness of breath, rapid pulse, sweating, and chest pain that worsens with deep breathing, coughing up blood, lightheadedness, feelings of anxiety. If you experience any of these symptoms notify your physician immediately, go to the emergency room, or if having trouble breathing, call 911. WOUND CARE: Leave the dressing on for 7 to 10days. You may change the dressing if it is saturated greater than 50%. Do not get the dressing wet at anytime. Wash your hands with antibacterial soap, rinse and dry prior to any wound care. If you have rochelle the visiting nurse or rehab facility can remove the stapes 10-14 days after surgery and place steri-strips across the wound. Leave the steri-strips in place until they fall off on their own. You may let water from the shower run on top of the steri-strips. If you do not have a visiting nurse or rehab facility, you will need to return to the office at 10-14 days for the rochelle to be removed. If you have itching or redness around the dressing call the office. FOLLOW-UP: Please follow up with your surgeon in the orthopedic clinic in 6 weeks from the day of surgery. If you have rochelle that need to be removed, you will need to come back to the office in 10-14 days from the day of surgery. - Diet and Activity Activity: as per physical therapy Diet: advance to your usual diet Interval History: Ms. Castro is a 71 year old female with PMH of hypertension, GERD, COPD, former smoker, arthritis who is a transfer from [facility] for management of left femur fracture. Patient reports of being in her usual state of health and was loading clothes in her car when she had a mechanical fall and injured her left hip. Patient was admitted to the general medical floor x-rays revealed a communicative fracture proximal left femur with moderate angulation moderate shortening and overriding of the main oblique fracture plane through the proximal shaft of the left femur. She was also found to have a urinary tract infection for which she was symptomatic. She was started on Rocephin during her inpatient stay. She was seen and evaluated by orthopedic surgery and underwent anatomic alignment of the left hip fracture following ORIF. Postoperatively she continued to have lower left extremity swelling and her hemoglobin dropped from 12.0-8.3 over the course of 24 hours. She received 2 units PRBC transfusion. Her Lovenox was held on day [address] of the lower left extremity which revealed nonspecific lateral subcutaneous edema likely postsurgical. No localized hematoma. She was kept overnight for which she remains stable. Throughout her inpatient stay her vitals remained stable. She was evaluated by physical therapy and short-term rehabilitation was recommended. On 12/09/2016 the patient was seen and evaluated and deemed stable for discharge short-term rehabilitation she was provided scripts for Omnicef 300 mg twice a day for the remainder of her course of 2 days. She is also provided a prescription for pain relief. Hospital course: Ms. Castro is a 71 year old female - Time Spent with Patient Total time spent providing and/or coordinating discharge services: - Constitutional Vitals: Temp Pulse Resp BP Pulse Ox 98.9 F 108 16 128/79 94 12/09/16 06:47 12/09/16 06:47 12/09/16 06:47 12/09/16 06:47 12/09/16 06:47 General appearance: Present: cooperative, A&O X 3, no acute distress, obese, answers questions appropriately - Head Head exam: Present: atraumatic, normocephalic - Eye Eye exam: Present: PERRL, conjuntiva pink, sclera anicteric Pupils: Present: PERRL - ENT ENT exam: Present: mucous membranes moist - Neck Neck exam general surgery: Present: supple, trachea midline. Absent: lymphadenopathy - Respiratory Respiratory exam: Present: CTAB. Absent: accessory muscle use, rales, rhonchi, wheezes - Cardiovascular Cardiovascular exam: Present: RRR, +S1, +S2. Absent: diastolic murmur, gallop, rubs, systolic murmur - GI/Abdominal GI/Abdominal exam: Present: normal bowel sounds, soft, no peritoneal signs. Absent: distended, tenderness - Extremities Exam Extremities exam: Present: warm, radial pulses palpable and symetrical. Absent : calf tenderness, cyanotic, pedal edema Additional comments: Left thigh demonstrates swelling, eccymosis and edema extends down to left foot. Lateral surgical site is dressed without drainage or seepage. Neurovascularly intact in all 4 extremities. 2+ dorsal pedal and posterior tibial pulses bilateral. - Neurological Exam Neurological exam: Present: alert, oriented X3, no focal deficits. Absent: pronater drift, facial droop, speech deficit - Psychiatric Psychiatric exam: Present: normal affect, normal mood - VTE Documentation of Mechanical Device: Venous foot pump, device <Iam Armstrong - Last Filed: 12/09/16 18:25> Date of Encounter: 12/09/16 Procedures/tests Complete & Pending: Procedures Performed prior 72 hours Category Date Time Status CT LE LT wo con [CT] Stat Cat Scan 12/08/16 09:59 Completed Date of admission: 12/06/16 17:14 Primary care physician: SAILAJA Min Consults: 12/06/16 20:09 Consult to Occupational Therapy [CONS] Routine Comment: Evaluate, develop and implement POC Reason for Consult: postop Consult to Orthopedic Navigator [CONS] [CONS] Routine Consult to Physical Therapy [CONS] Routine Comment: Evaluate, develop and implement POC Reason for Consult: non weight bearing left lower extremity RT Post Op Consult [CONS] Routine Hospital course: Ms. Castro is a 71 year old female - Time Spent with Patient Total time spent providing and/or coordinating discharge services: - Constitutional Vitals: Temp Pulse Resp BP Pulse Ox 98.2 F 100 18 115/40 95 12/09/16 11:08 12/09/16 11:08 12/09/16 11:08 12/09/16 11:08 12/09/16 11:08 - Attending Attestation I examined this patient and my medical decision-making was reviewed with the Resident Physician, Dr Berrios. I agree with the documented findings, disposition and treatment plan as described except to the extent set forth below. Addendum to Discharge diagnosis: Acute blood loss anemia secondary to surgery Patient is in no acute distress. Heart auscultation reveals S1 and S2 regular. Abdomen is soft nontender. Extremities with right thigh soft tissue edema, surgical wound covered with dressing. The finding calf are tender to palpation but soft. Plan: [facility]. Start aspirin 325 mg twice a day for DVT prophylaxis.
--- NOTE | 2016-12-09 10:25 | Physician Discharge Referral ---
ExtendedCare Referral Info Transfer To: SNF Provider in Charge after Transfer: PCP Institutional Level of Care: Skilled - Diagnosis (1) Femur fracture, left Priority: Primary Status: Acute (2) Acute blood loss anemia Priority: Primary Status: Acute (3) COPD (chronic obstructive pulmonary disease) Priority: Secondary Status: Acute (4) HTN (hypertension) Priority: Secondary Status: Chronic (5) Obesity (BMI 30.0-34.9) Priority: Secondary Status: Chronic (6) UTI (urinary tract infection) Priority: Primary Status: Acute - Transfer Medications Prescriptions: OxyCODONE Immed Rel [Roxicodone 5 MG] 5 mg PO Q4HR PRN #30 tablet PRN Reason: Mild Pain Aspirin 325 mg PO DAILY #21 tablet Cefdinir [Omnicef] 300 mg PO BID #4 capsule Home Medications: Carvedilol [Coreg] 25 mg PO BID 12/06/16 [History] Duloxetine HCl [Cymbalta] 90 mg PO HS 12/06/16 [History] Fluticasone/Salmeterol [Advair 250-50 Diskus] 1 puff IH BID 12/06/16 [History] Ipratropium/Albuterol Neb [Duoneb] 3 ml IH Q4HR 12/06/16 [History] Pantoprazole Sodium [Protonix] 40 mg PO DAILY 12/06/16 [History] Ranitidine HCl [Acid Watch Inspector Final Movement] 150 mg PO BID 12/06/16 [History] Triamcinolone Acetonide 1 appl TP BID 12/06/16 [History] Aspirin 325 mg PO DAILY #21 tablet 12/09/16 [Rx] Cefdinir [Omnicef] 300 mg PO BID #4 capsule 12/09/16 [Rx] OxyCODONE Immed Rel [Roxicodone 5 MG] 5 mg PO Q4HR PRN #30 tablet 12/09/16 [Rx] Allergies/Adverse Reactions: Allergies codeine Allergy (Verified 12/06/16 17:13) See Comments Patient states this medication "makes her heart race" - Respiratory Orders Smoking Cessation: Smoking cessation has been advised. For more information, call the [place] Tobacco Quit Line at 3-130-DXMS-NOW. - Ancillary Orders May use pressure relief devices daily prn, May consult with Dentist, Parking Lot Supervisor, Employee Benefits Insurance Agent PRN - Advance Directives Living Will: No Power of Core Drill Operator Helper: No Code Status: Full Code - Mobility Orders Ambulate - Rehabiliation Orders Rehab Potential: Good Rehab Orders: ROM Exercises, Evaluation for Physical Therapy, Evaluation for Occupational Therapy - Treatments Skin tear care topically daily PRN per policy, Fleet enema rectally every other day PRN cleansing purposes - Diet Orders Regular CERTIFICATION: I certify that the transfer of the above named patient to an Extended Care Facility is necessary for the continuing treatment of the diagnosis listed. The above information is true and accurate reflection of patient's current condition. Confidential - Redisclosure prohibited without a patient's written consent.
[2016-12-09 11:11] VITALS: BP 115/40
== END 2016-12-09 11:26 | DRG 481 ==
LOC: 3NENU
PROVIDERS: ADMIT Hospitalist; ATTEND Internal Medicine

== ENCOUNTER 2019-01-11 12:01 | Observation (INO) ==
[2019-01-11] MEDS ORDERED: Albuterol 2.5 MG/3 ML NEBULIZER IH ONE (12:38)
[2019-01-11] MEDS ORDERED: CeFAZolin Syr 2,000MG/20 ML 2,000 MG/20 ML SYRINGE IVPB ONE (12:38)
[2019-01-11] MEDS ORDERED: Ringers Solution, Lactated 1,000 ML IVC SCH (12:45)
[2019-01-11] MEDS ORDERED: Albuterol 2.5 MG/3 ML NEBULIZER ONE (13:05)
--- NOTE | 2019-01-11 13:16 | History & Physical Report ---
Date of Encounter: 01/11/19 Time of Encounter: 13:16 24 Hour HP Update - Instructions Instructions: If the History and Physical is less than 30 days old and was completed prior to A.M. admission and or procedure and has NOT been updated on calendar day of procedure please complete this update prior to performing procedure. - Update Patient reports changes in Medical Condition: No Changes in examination, assessment, or condition: No Changes in Medication: No Preop tests/diagnostics Reviewed: Yes Surgery Remains Indicated: Yes Consent for Planned Operative Procedure(s) Verified: Yes - Pre-Operative Checklist Preoperative Checklist Indicated: No Prophylactic Antibiotic Ordered: Yes Is VTE Prophylaxis Indicated?: Yes
[2019-01-11] MEDS ORDERED: Famotidine 20 MG/2 ML VIAL IVP ONE (13:43)
[2019-01-11] MEDS ORDERED: Celecoxib 200 MG CAPSULE PO ONE (13:43)
[2019-01-11] MEDS ORDERED: Pregabalin 75 MG CAPSULE PO ONE (13:45)
[2019-01-11] MEDS ORDERED: Acetaminophen IV 1,000 MG/100 ML INFUS..BTL IVPB ONE (13:46)
--- NOTE | 2019-01-11 13:49 | Anesthesia Evaluation PreOp ---
Date of Encounter: 01/11/19 Time of Encounter: 13:50 - Past History Planned Operation: Rt TKA Cardiac History: HTN, Hyperlipidemia, Other (DVT on ASA) Pulmonary History: Former smoker, Asthma, COPD MANAGER ANDROID History: Denies Any Significant HX Other Medical History: GERD, Other (Osteoarhtritis) Anesthesia History: No Prior Anesthetic Complications : No Test: Negative Alcohol Use: none Drug use: none Medications and Allergies Carvedilol [Coreg] 25 mg PO BID 12/06/16 [History] Duloxetine HCl [Cymbalta] 90 mg PO HS 12/06/16 [History] Ipratropium/Albuterol Neb [Duoneb] 3 ml IH Q4HR PRN 12/06/16 [History] Pantoprazole Sodium [Protonix] 40 mg PO DAILY 12/06/16 [History] Alendronate Sodium 70 mg PO SA 01/11/19 [History] Aspirin 650 mg PO DAILY PRN 01/11/19 [History] Budesonide/Formoterol 160/4.5 [Symbicort 160/4.5] 2 puff IH BIDR 01/11/19 [History] Cholecalciferol (D-3) [Vitamin D] 5,000 unit PO DAILY 01/11/19 [History] Allergy/AdvReac Type Severity Reaction Status Date / Time codeine Allergy See Verified 12/06/16 17:13 Comments - Meds/Allergy Pre-op Review Medications Reviewed: Yes Allergies Reviewed: Yes Beta Blockers on Current Med List: No Anesthesia Results - Labs Laboratory Tests 01/02/19 01/02/19 01/02/19 16:30 16:30 16:30 Hgb 11.5 Hct 37.1 PT 10.8 INR 1.0 APTT 31.5 Sodium 138 Potassium 4.2 BUN 12 Creatinine 0.56 L - Imaging EKG: report reviewed (SR with Arrhythmia) Anesthesia Exam O2 Sat Height 1.63 m Weight 88.451 kg O2 Sat by Pulse Oximetry 96 O2 Sat by Pulse Oximetry 96 Vital Signs Temp Pulse Resp BP Pulse Ox 97.5 F L 71 18 155/75 96 01/11/19 12:23 01/11/19 12:23 01/11/19 12:23 01/11/19 12:23 01/11/19 12:23 Height: 5'4 Weight: 195 lbs NPO (# of Hours): MN Pain Scale: 0 - HEENT Pupil (Motor): Pupils equal, EOMI Mallampati: III Teeth: Edentulous Oral Opening: Less than or equal to 3 - MANAGER ANDROID LOC: Oriented MANAGER ANDROID Motor: Normal RUE, Normal LUE, Normal RLE, Normal LLE, Normal Face MANAGER ANDROID Sensory: Normal: RUE, LUE, RLE, LLE, Face - Cardiac Rhythm: Regular Murmur: None JVD: No Carotid Bruit: No - Pulmonary Breath Sounds: bilateral Clear Respiratory Effort: Symmetrical Anesthesia Assess/Plan ASA Score: 3 (HTN COPD) Level of consciousness: Cooperative, Oriented Anesthetic Plan: General (Patient refused SAB due to Back Surgeries), Regional Nerve Block Regional Nerve Block Plan: Femoral Reason for No Neuroaxial/Regional Block: Patient refusal (Refused Spinal due to multiple back surgeries) Monitoring Plan: Standard Monitors Recovery Plan: PACU (Discussed GA and RA, agrees to proceed)
--- NOTE | 2019-01-11 14:04 | Discharge Summary ---
<Pablito Carrillo - Last Filed: 01/11/19 14:01> Orders not resulted at time of discharge: Pending orders 01/11/19 13:16 XR knee RT 1-2V [XR] Routine 01/11/19 13:17 Hemoglobin and Hematocrit [HEME] Routine Date of Encounter: 01/11/19 - Discharge Diagnosis (1) Asthma Priority: Secondary Status: Chronic Qualifiers: Asthma severity: unspecified severity Asthma persistence: unspecified Asthma complication type: unspecified Qualified Code(s): J45.909 - Unspecified asthma, uncomplicated (2) Arthritis of right knee Priority: Primary Status: Chronic (3) Status post total right knee replacement Priority: Primary Status: Acute (4) COPD (chronic obstructive pulmonary disease) Priority: Secondary Status: Chronic Qualifiers: COPD type: unspecified COPD Qualified Code(s): J44.9 - Chronic obstructive pulmonary disease, unspecified (5) DVT prophylaxis Priority: Secondary Status: Chronic (6) HTN (hypertension) Status: Chronic (7) Obesity (BMI 30.0-34.9) Priority: Secondary Status: Chronic - Hospital Course Hospital course: Ms. Castro is a 73 year old female - Time Spent with Patient Total time spent providing and/or coordinating discharge services: - Discharge Medications Prescriptions: New Aspirin Enteric Coated [Aspirin EC] 325 mg PO BID #20 tablet. OxyCODONE Immed Rel [Roxicodone 5 MG] 5 mg PO Q6HR PRN 5 Days #20 tablet PRN Reason: Pain Continued Ipratropium/Albuterol Neb [Duoneb] 3 ml IH Q4HR PRN PRN Reason: Shortness Of Breath Pantoprazole Sodium [Protonix] 40 mg PO DAILY Duloxetine HCl [Cymbalta] 90 mg PO HS Carvedilol [Coreg] 25 mg PO BID Aspirin 650 mg PO DAILY PRN PRN Reason: Pain Cholecalciferol (D-3) [Vitamin D] 5,000 unit PO DAILY Alendronate Sodium 70 mg PO SA Budesonide/Formoterol 160/4.5 [Symbicort 160/4.5] 2 puff IH BIDR Home Medications: Carvedilol [Coreg] 25 mg PO BID 12/06/16 [History] Duloxetine HCl [Cymbalta] 90 mg PO HS 12/06/16 [History] Ipratropium/Albuterol Neb [Duoneb] 3 ml IH Q4HR PRN 12/06/16 [History] Pantoprazole Sodium [Protonix] 40 mg PO DAILY 12/06/16 [History] Alendronate Sodium 70 mg PO SA 01/11/19 [History] Aspirin 650 mg PO DAILY PRN 01/11/19 [History] Aspirin Enteric Coated [Aspirin EC] 325 mg PO BID #20 tablet. 01/11/19 [Rx] Budesonide/Formoterol 160/4.5 [Symbicort 160/4.5] 2 puff IH BIDR 01/11/19 [History] Cholecalciferol (D-3) [Vitamin D] 5,000 unit PO DAILY 01/11/19 [History] OxyCODONE Immed Rel [Roxicodone 5 MG] 5 mg PO Q6HR PRN 5 Days #20 tablet 01/11/19 [Rx] Allergies/Adverse Reactions: Allergy/AdvReac Type Severity Reaction Status Date / Time codeine Allergy See Verified 12/06/16 17:13 Comments Primary care physician: SAILAJA Min - Patient Status Disposition: Transfer Hospital Swing Bed Condition: Fair - Discharge Instructions Follow Up With: Lily Escoto, CUSTOMER SERVICE AND SALES CONSULTANT [Primary Care Provider] - <Candie Byrd - Last Filed: 01/15/19 09:17> Orders not resulted at time of discharge: Pending orders 01/11/19 15:15 US anesthesia pain block [US] Routine 01/11/19 16:54 Surgical Pathology [PTH] Routine 01/11/19 18:05 US anesthesia pain block [US] Routine Date of Encounter: 01/15/19 Time of Encounter: 09:13 - Discharge Diagnosis (1) Status post total right knee replacement Priority: Primary Status: Acute (2) Arthritis of right knee Priority: Primary Status: Chronic (3) Acute blood loss anemia Priority: Secondary Status: Acute (4) Asthma Priority: Secondary Status: Chronic Qualifiers: Asthma severity: unspecified severity Asthma persistence: unspecified Asthma complication type: unspecified Qualified Code(s): J45.909 - Unspecified asthma, uncomplicated (5) COPD (chronic obstructive pulmonary disease) Priority: Secondary Status: Chronic Qualifiers: COPD type: unspecified COPD Qualified Code(s): J44.9 - Chronic obstructive pulmonary disease, unspecified (6) GERD (gastroesophageal reflux disease) Priority: Secondary Status: Chronic Qualifiers: (7) HTN (hypertension) Priority: Secondary Status: Chronic Qualifiers: Hypertension type: unspecified secondary hypertension Qualified Code(s): I15.9 - Secondary hypertension, unspecified; I15 - Secondary hypertension (8) Obesity (BMI 30.0-34.9) Priority: Secondary Status: Chronic - Hospital Course Hospital course: Ms. Castro is a 73 year old female status post right TKR 01/11/19 with medical history of COPD, HTN. She participated in therapy. She did have postoperative bleeding which was controlled with additional skin rochelle and pressure dressings. She was deemed stable for discharge 01/13/19 and will follow up in [facility] office in 1 week. - Time Spent with Patient Total time spent providing and/or coordinating discharge services: Date of admission: 01/12/19 15:43 Primary care physician: SAILAJA Min Consults: 01/11/19 18:05 Consult to Nutrition [CONS] Routine Comment: Consulting Provider: NUTRITION Reason for Dietary Consult: Other Other:: Proper nutrition to facilitate wound healing Consult to Occupational Therapy [CONS] Routine Comment: Evaluate, develop and implement POC Reason for Consult: post knee surgery Does patient have active BEDREST order?: No Is patient medically & hemodynamically stable?: Yes Consult to Orthopedic Navigator [CONS] [CONS] Routine Consult to Physical Therapy [CONS] Routine Comment: Evaluate, develop and impliment POC Reason for Consult: post knee surgery Does patient have active BEDREST order?: No Is patient medically & hemodynamically stable?: Yes Consult to Comber Fixer [CONS] Routine Reason for SW Consult: post op joint replacement RT Post Op Consult [CONS] Routine 01/11/19 18:25 Consult to Pastoral Services [CONS] Routine Comment: Discharging clinician: Pablito Carrillo Anticipated date of discharge: 01/13/19 - Impressions ITS Impressions Knee X-Ray 01/11/19 13:16 IMPRESSION: Status post right knee arthroplasty without acute postoperative complication. D/ / 01/12/2019 07:56:27 Dallas Dickerson MD / heydi Interpreting Provider: Dallas Dickerson MD - Patient Status Functional capacity at discharge: uses cane/walker Overall status at discharge: patient is back to baseline - Diet and Activity Activity: ambulate only with your walker, as per physical therapy Diet: advance to your usual diet
[2019-01-11] MEDS ORDERED: *HR* FentaNYL (PF) 100 MCG/2 ML VIAL ONE ×2 (14:57→15:25)
[2019-01-11] MEDS ORDERED: *HR* Midazolam HCl 2 MG/2 ML VIAL ONE (14:57)
[2019-01-11] MEDS ORDERED: ROPIVACAINE/PF/NS SYRINGE INTRAART ONE (14:58)
[2019-01-11] MEDS ORDERED: ROPIVACAINE HCL/PF 0.5% 30 ML VIAL ONE (14:58)
[2019-01-11] MEDS ORDERED: Ropivacaine/PF 0.5% 24.62 ML, EPINEPHrine 0.25 MG, Ketorolac 15 MG, Water for inj. (ste... IR ONE (15:10)
[2019-01-11] MEDS ORDERED: Ethanol\\Acetic Acid\\Na Ace\\Ben 1,000 ML IRRIG.SOLN IR ONE (15:17)
[2019-01-11] MEDS ORDERED: *HR* Propofol 200 MG/20 ML VIAL IVP ONE ×2 (15:20→15:25)
[2019-01-11] MEDS ORDERED: *HR* Succinylcholine 200 MG/10 ML VIAL IVP ONE (15:20)
[2019-01-11] MEDS ORDERED: Lidocaine -MPF 2% 2 ML VIAL ONE ×2 (15:23→15:25)
[2019-01-11] MEDS ORDERED: Dexamethasone 4 MG/ML VIAL ONE ×2 (15:23→15:25)
[2019-01-11] MEDS ORDERED: Ondansetron 4 MG/2 ML VIAL ONE ×2 (15:23→15:25)
[2019-01-11] MEDS ORDERED: Tranexamic Acid 1,000 MG/10 ML VIAL ONE ×2 (15:25→15:54)
[2019-01-11] MEDS ORDERED: Ketorolac 30 MG/ML VIAL ONE (15:26)
--- NOTE | 2019-01-11 16:23 | Anesthesia Procedures ---
Date of Encounter: 01/11/19 Time of Encounter: 15:40 Procedures: Anesthesia - Nerve Block Procedure Date: 01/11/19 Time: 15:40 Allergies/Adv Reactions: codeine Surgical Procedure: Right tka Checklist: Correct Patient Identifier, Correct procedure, History checked Correct side: Right Blood Thinner: Yes (asa) Monitor Applied: EKG, BP, Pulse Oximetry Supplemental Oxygen via Nasal Cannula (L/min): 2 Sedation: Versed (mg): 1 Sedation: Fentanyl (mcg): 50 Indication: Post Op Analgesia (per dr. vo) Pre-op Neuro Deficits: No Block Type: Femoral, Other (ipack) Catheter placed: No Sterile Technique: Yes Ultrasound used: Yes Anatomy identified: Yes Visual spread of Local: Yes Neuro Stimulation: Yes Nerve Stimulator Range: 0.2 - 0.4 mA Blood on Needle Aspiration: No Smooth Injection of Local: Yes Pain with Injection of Local: No Prep: Chlorhexadine Needle: 22 x 50 mm Stimuplex (femoral), 21 x 100 mm Stimuplex (ipack) Local: Ropivacaine (30cc 0.5% with 8mg decadron for femoral, 5cc 0.25% for ipack) Volume (cc): 30, 5 Number of Attempts: 1 Complications: None/effective block Vitals: Vital Signs/O2 Sat/Glucose, Most Recent Temp Pulse Resp BP Pulse Ox 97.5 F L 69 14 150/80 97 01/11/19 12:23 01/11/19 15:43 01/11/19 15:43 01/11/19 15:43 01/11/19 15:43 Comments: naac, performed by RENAY Valencia and Dr. Hampton
[2019-01-11] MEDS ORDERED: *HR* HYDROMORPHONE 2 MG/ML VIAL ONE (16:29)
--- NOTE | 2019-01-11 16:59 | Orthopedic Operative Note ---
Date of procedure: 01/11/19 Pre-op diagnosis: Right knee arthritis Post-op diagnosis: same Procedure: Procedure: Right robotic-assisted Total knee replacement Estimated blood loss: 200 cc Hardware: Metal and polyethylene replacement. Royal Femur: 4 Tibia: 4 TS insert: 9 Patella: 39 Exam Under anesthesia: 6 degrees flexion contracture 3 degree varus as calculated by the robot full flexion and no instability Procedural Notes: Grade 4 arthritic changes all 3 compartments. Operative procedure: The patient was brought to the operating room and placed on the operating room table. After general anesthesia was administered the operative knee was examined. Findings were noted in the exam under anesthesia. The operative extremity was prepped and draped in sterile surgical fashion. The patient received IV antibiotics prior to skin incision. A standard midline incision was made centered over the patella. The incision was made through the skin and subcutaneous tissue. A medial parapatellar tendon approach was performed. Care was taken to preserve tissue along the medial aspect of the patella. And to protect the patella tendon. The deep MCL was released off the medial tibia. The infra patella fat pad was excised. The patella was everted and cut was made at the level of the insertion of the quadriceps and patella tendon. The patella was sized the guide was seated and the lug holes are drilled. Knee was brought into flexion. Patient noted to have grade 4 arthritic changes all 3 compartments. Steinmann pins were placed in the tibia and the femur for the tibial and femoral arrays respectively. Checkpoints were also placed in the tibia and the femur for calculation purposes. The knee including the femur and the tibial registered. Osteophytes, ACL and PCL were excised at this point. Extension and flexion were assessed with a valgus stress components were adjusted on the computer to balance the knee. Femoral cuts were made first with robotic assistance, these included the anterior cut posterior cuts chamfer cuts. Tibial cut was then performed with robotic assistance as well. Bone fragments were removed, as well as the medial and lateral meniscus. The size 4 femoral guide was seated box cut was made lug holes are drilled. The size 4 tibial tray was seated and prepared with the fin cutter. Trial reduction with the 9 TS Dana revealed extension of 0 degree and 1 degree varus full flexion. No varus valgus instability. Trial reduction revealed excellent patella tracking. All trial components were removed all bony surfaces were irrigated. The Tibia was seated followed by the femur, The selected Dana size was seated and secured patella. Patient had similar findings for motion and stability. The knee was then irrigated out with 2 L of pulse irrigation. The extensor mechanism was closed with #2 FiberWire suture and #2 PDS suture. The subcutaneous tissue was then irrigated and closed deep with #1 PDS suture superficially with 0 PDS suture and skin was closed with zip tie The patient was then placed in a sterile dressing and a postoperative brace extubated and transferred to recovery room in stable condition. Anesthesia: GETA Surgeon: Pablito Carrillo Was there an assistant vice president present: No Estimated blood loss (cc): 200 Condition: stable Disposition: PACU
[2019-01-11] MEDS ORDERED: Racepinephrine Neb 0.5 ML VIAL IH ONE ×2 (17:13→17:27)
[2019-01-11] MEDS ORDERED: Sennosides 8.6 MG TABLET PO PRN (18:05)
[2019-01-11] MEDS ORDERED: Ondansetron 4 MG/2 ML VIAL IVP PRN (18:05)
[2019-01-11] MEDS ORDERED: MOM Conc 10 ML UD.LIQ PO PRN (18:05)
[2019-01-11] MEDS ORDERED: Temazepam 15 MG CAPSULE PO PRN (18:05)
[2019-01-11] MEDS ORDERED: traMADol 50 MG TABLET PO PRN (18:05)
[2019-01-11] MEDS ORDERED: Naloxone 0.4 MG/ML INJ IVP PRN (18:05)
[2019-01-11] MEDS ORDERED: Aspirin 325 MG TABLET PO PRN (18:05)
[2019-01-11] MEDS ORDERED: *HR* Promethazine 25 MG/ML VIAL IVP PRN (18:05)
[2019-01-11] MEDS: HYDROcodone BIT/Homatropine 5 MG TABLET PO PRN (18:28)
[2019-01-11] MEDS: *HR* Enoxaparin 30 MG/0.3 ML SYRINGE SQ SCH (18:29)
[2019-01-11] MEDS: Ascorbic Acid 500 MG TABLET PO SCH (18:29)
[2019-01-11 18:52] LABS: Hematocrit 33.4 % (35.3-44.9); Hemoglobin 10.3 g/dL (11.5-15.4)
[2019-01-11] MEDS: Budesonide/Formoterol 160/4.5 1 PUFF INH IH SCH (19:49)
[2019-01-11] MEDS: Ringers Solution, Lactated 1,000 ML IVC SCH (22:58)
[2019-01-12] MEDS: *HR* OxyCODONE Immed Rel 5 MG TABLET PO PRN ×2 (00:25→13:59)
[2019-01-12] MEDS: HYDROcodone BIT/Homatropine 5 MG TABLET PO PRN ×2 (04:23→19:33)
[2019-01-12] MEDS: *HR* Enoxaparin 30 MG/0.3 ML SYRINGE SQ SCH ×2 (05:25→13:09)
[2019-01-12 05:56] LABS: Basophils % 0.1 %; Hematocrit 27.3 % (35.3-44.9); Immature Granulocytes % 0.5 % (0-4); Lymphocytes # 0.7 K/mcL (0.6-4.6); Lymphocytes % 5.1 %; Mean Corpuscular HGB Conc 31.9 g/dL (31.6-35.5); Mean Corpuscular Hemoglobin 27.5 pg (28.0-33.3); Mean Corpuscular Volume 86.4 fL (83.0-100.0); Mean Platelet Volume 9.1 fL (9.4-12.4); Monocytes # 0.3 K/mcL (0.0-1.3); Monocytes % 2.4 %; Neutrophils # 11.7 K/mcL (1.6-8.9); Platelet Count 214 K/mcL (140-400); Red Blood Count 3.16 M/mcL (3.82-4.97); Red Cell Distribution Width 13.4 % (11.5-14.5); Segmented Neutrophils % 91.9 %; White Blood Count 12.7 K/mcL (4.3-11.1)
[2019-01-12 06:05] LABS: Hemoglobin 8.7 g/dL (11.5-15.4)
[2019-01-12 06:15] LABS: BUN/Creatinine Ratio 31 (6-26); Blood Urea Nitrogen 16 mg/dL (8-23); Calcium 7.9 mg/dL (8.6-10.3); Carbon Dioxide 24 mEq/L (23-29); Chloride 102 mEq/L (98-107); Glucose 190 mg/dL (70-105); Osmolality,Calculated 282 (280-300); Potassium 4.3 mEq/L (3.5-5.1); Sodium 133 mEq/L (136-145); eGFR For African Americans > 60 (> 60); eGFR For Non-African Americans > 60 (> 60)
--- NOTE | 2019-01-12 06:40 | Orthopedics Progress Note ---
Date of Encounter: 01/12/19 Time of Encounter: 06:39 - Assessment and Plan (1) Asthma Current Visit: Yes Status: Chronic Qualifiers: Asthma severity: unspecified severity Asthma persistence: unspecified Asthma complication type: unspecified Qualified Code(s): J45.909 - Unspecified asthma, uncomplicated (2) Arthritis of right knee Current Visit: Yes Status: Chronic (3) Status post total right knee replacement Current Visit: Yes Status: Acute (4) COPD (chronic obstructive pulmonary disease) Current Visit: No Status: Chronic Qualifiers: COPD type: unspecified COPD Qualified Code(s): J44.9 - Chronic obstructive pulmonary disease, unspecified (5) DVT prophylaxis Current Visit: No Status: Chronic (6) HTN (hypertension) Current Visit: No Status: Chronic Qualifiers: Hypertension type: unspecified secondary hypertension Qualified Code(s): I15.9 - Secondary hypertension, unspecified; I15 - Secondary hypertension (7) Obesity (BMI 30.0-34.9) Current Visit: No Status: Chronic (8) Acute blood loss anemia Current Visit: Yes Status: Acute Subjective Interval history: Patient was seen this morning doing well without complaints. Afebrile vital signs stable. Operative extremity: Neurovascularly intact Patient with active bleeding, dressing change, rochelle added. We will hold knee motion today. Calves nontender Assessment and plan: Continue with postoperative care hemoglobin 8.7 Objective Vital signs: Vital Signs Temp Pulse Resp BP Pulse Ox 01/12/19 05:50 97.7 F 71 16 114/48 96 01/11/19 23:24 97.6 F 76 17 102/59 98 01/11/19 19:49 16 98 01/11/19 18:49 97.8 F 80 14 118/63 96 01/11/19 18:13 97 01/11/19 18:10 98.5 F 72 16 119/59 97 01/11/19 17:42 75 14 124/58 93 01/11/19 17:32 71 14 115/59 93 01/11/19 17:22 67 16 126/59 100 01/11/19 17:12 97.5 F L 69 12 123/65 100 01/11/19 15:43 69 14 150/80 97 01/11/19 15:29 69 12 150/80 96 01/11/19 13:28 18 155/75 96 01/11/19 12:23 97.5 F L 71 18 155/75 96 Intake and Output 01/11/19 01/11/19 01/12/19 15:59 23:59 07:59 Output Total 200 / 200 Balance -200 / -200 Output: Estimated Blood Loss 200 / 200 Other: # Voids 1 Weight 88.451 kg - Labs CBC & BMP: 01/12/19 05:09 01/12/19 05:09 Labs: Abnormal lab results WBC 12.7 K/mcL (4.3-11.1) H 01/12/19 05:09 RBC 3.16 M/mcL (3.82-4.97) L 01/12/19 05:09 Hgb 8.7 g/dL (11.5-15.4) L D 01/12/19 05:09 Hct 27.3 % (35.3-44.9) L 01/12/19 05:09 MCH 27.5 pg (28.0-33.3) L 01/12/19 05:09 MPV 9.1 fL (9.4-12.4) L 01/12/19 05:09 11.7 K/mcL (1.6-8.9) H 01/12/19 05:09 Sodium 133 mEq/L (136-145) L 01/12/19 05:09 0.51 mg/dL (0.60-1.20) L 01/12/19 05:09 31 (6-26) H 01/12/19 05:09 Glucose 190 mg/dL (70-105) H 01/12/19 05:09 Calcium 7.9 mg/dL (8.6-10.3) L 01/12/19 05:09 Consult Discharge Plan - Plan Referrals: Lily Escoto, SENIOR INFORMATION DEVELOPER [Primary Care Provider] - Prescriptions: Aspirin Enteric Coated [Aspirin EC] 325 mg PO BID #20 tablet. OxyCODONE Immed Rel [Roxicodone 5 MG] 5 mg PO Q6HR PRN 5 Days #20 tablet PRN Reason: Pain
[2019-01-12] MEDS: Multivit/Ca/Min/Fe/FA 1 TAB TABLET PO SCH (07:38)
[2019-01-12] MEDS: Ascorbic Acid 500 MG TABLET PO SCH ×2 (07:38→17:26)
[2019-01-12] MEDS: Cholecalciferol (D-3) 1,000 UNIT TABLET PO SCH (07:39)
[2019-01-12] MEDS: Budesonide/Formoterol 160/4.5 1 PUFF INH IH SCH ×2 (07:50→20:25)
--- NOTE | 2019-01-12 11:30 | Physician Discharge Referral ---
ExtendedCare Referral Info Transfer To: [facility] Provider in Charge: Dr. Carrillo - Diagnosis (1) Status post total right knee replacement Priority: Primary Status: Acute (2) Arthritis of right knee Priority: Primary Status: Chronic (3) Acute blood loss anemia Priority: Secondary Status: Acute (4) Asthma Priority: Secondary Status: Chronic (5) COPD (chronic obstructive pulmonary disease) Priority: Secondary Status: Chronic (6) GERD (gastroesophageal reflux disease) Priority: Secondary Status: Chronic (7) HTN (hypertension) Priority: Secondary Status: Chronic (8) Obesity (BMI 30.0-34.9) Priority: Secondary Status: Chronic Expected Duration of Placement: <30 days Prognosis: Good Aware of Diagnosis: Patient Aware of Prognosis: Patient - Transfer Medications Home Medications: Carvedilol [Coreg] 25 mg PO BID 12/06/16 [History] Duloxetine HCl [Cymbalta] 90 mg PO HS 12/06/16 [History] Ipratropium/Albuterol Neb [Duoneb] 3 ml IH Q4HR PRN 12/06/16 [History] Pantoprazole Sodium [Protonix] 40 mg PO DAILY 12/06/16 [History] Alendronate Sodium 70 mg PO SA 01/11/19 [History] Aspirin 650 mg PO DAILY PRN 01/11/19 [History] Aspirin Enteric Coated [Aspirin EC] 325 mg PO BID #20 tablet. 01/11/19 [Rx] Budesonide/Formoterol 160/4.5 [Symbicort 160/4.5] 2 puff IH BIDR 01/11/19 [History] Cholecalciferol (D-3) [Vitamin D] 5,000 unit PO DAILY 01/11/19 [History] OxyCODONE Immed Rel [Roxicodone 5 MG] 5 mg PO Q6HR PRN 5 Days #20 tablet 01/11/19 [Rx] Allergies/Adverse Reactions: Allergy/AdvReac Type Severity Reaction Status Date / Time codeine Allergy See Verified 12/06/16 17:13 Comments - Respiratory Orders None Smoking Cessation: Smoking cessation has been advised. For more information, call the [place] Tobacco Quit Line at 1-569-OHPN-NOW. - Ancillary Orders May use pressure relief devices daily prn, May go on MARCIN w/family/respon libertarian w/meds at nurse discretion PRN, May consult with Dentist, Gear Cutting Machine Operator, Welder Explosion PRN - Advance Directives Code Status: Full Code - Mobility Orders Chair, Ambulate - Rehabiliation Orders Rehab Potential: Good Rehab Orders: ROM Exercises, Evaluation for Physical Therapy, Evaluation for Occupational Therapy Other: Knee Continuity: Opsite dressing, leave intact until first post-operative visit. If dressing becomes >50% saturated, contact office, remove dressing and place appropriate dressing in its place. Do not allow for dressing to get wet. Zipline/[place] in place, plan to remove at post-operative day #14-16. Total Joint Precautions x 6 weeks Apply cold therapy wrap 3-6x/day for 20 minutes at a time. Encourage ambulation throughout the day Use Incentive spirometer 10x/hour. Elevate affected extremity above heart as tolerated. Brace: Wear knee immobilizer at night x 2 weeks. - Treatments Skin tear care topically daily PRN per policy - Diet Orders Regular CERTIFICATION: I certify that the transfer of the above named patient to an Extended Care Facility is necessary for the continuing treatment of the diagnosis listed. The above information is true and accurate reflection of patient's current condition. Confidential - Redisclosure prohibited without a patient's written consent.
--- NOTE | 2019-01-12 12:25 | Event Note ---
Date of Encounter: 01/12/19 Time of Encounter: 12:15 PCR - POD#1 s/p Right TKR robotic 01/11/19 Patient seen at bedside, without complaints. A&O x 3 Afebrile, vital signs stable. Dressings are roughly 1/3 saturated at distal end with bright red blood. Dr. Carrillo added rochelle this morning but she continues to bleed for the very distal end of incision. Added one more staple at distal end and bleeding appeared to have stopped. Applied pressure dressing. continue in knee immobilizer with no knee flexion until bleeding stops. Hold lovenox for today. Labs reviewed. H/H - 8.7/27.3 asymptomatic, continue to monitor Pain control: adequate Participating in PT. HOLD knee flexion for today. WBAT All questions and concerns addressed. Educated on use of incentive spirometer. Encouraged ambulation and proper hydration. Patient educated on post-operative restrictions and post-operative care. Assessment and plan: Continue with postoperative care Discharge plan: ECF pending auth
[2019-01-12] MEDS: Ipratropium/Albuterol Neb 3 ML IH PRN ×2 (14:39→20:25)
[2019-01-12] MEDS: Ringers Solution, Lactated 1,000 ML IVC SCH ×2 (18:49→19:47)
[2019-01-13] MEDS: *HR* Enoxaparin 30 MG/0.3 ML SYRINGE SQ SCH (04:48)
[2019-01-13 05:10] LABS: Basophils % 0.1 %; Eosinophils % 0.2 %; Hematocrit 25.7 % (35.3-44.9); Hemoglobin 8.2 g/dL (11.5-15.4); Immature Granulocytes % 0.4 % (0-4); Lymphocytes # 1.4 K/mcL (0.6-4.6); Mean Corpuscular HGB Conc 31.9 g/dL (31.6-35.5); Mean Corpuscular Hemoglobin 27.6 pg (28.0-33.3); Mean Corpuscular Volume 86.5 fL (83.0-100.0); Mean Platelet Volume 9.5 fL (9.4-12.4); Monocytes # 1.2 K/mcL (0.0-1.3); Monocytes % 11.5 %; Platelet Count 214 K/mcL (140-400); Red Blood Count 2.97 M/mcL (3.82-4.97); Red Cell Distribution Width 13.8 % (11.5-14.5); Segmented Neutrophils % 74.8 %; White Blood Count 10.7 K/mcL (4.3-11.1)
[2019-01-13 05:27] LABS: BUN/Creatinine Ratio 23 (6-26); Blood Urea Nitrogen 14 mg/dL (8-23); Calcium 8.2 mg/dL (8.6-10.3); Carbon Dioxide 24 mEq/L (23-29); Chloride 103 mEq/L (98-107); Glucose 118 mg/dL (70-105); Osmolality,Calculated 280 (280-300); Potassium 4.3 mEq/L (3.5-5.1); Sodium 134 mEq/L (136-145); eGFR For African Americans > 60 (> 60); eGFR For Non-African Americans > 60 (> 60)
[2019-01-13] MEDS: Budesonide/Formoterol 160/4.5 1 PUFF INH IH SCH (07:31)
[2019-01-13] MEDS: Ipratropium/Albuterol Neb 3 ML IH PRN (07:37)
[2019-01-13] MEDS: Multivit/Ca/Min/Fe/FA 1 TAB TABLET PO SCH (09:17)
[2019-01-13] MEDS: Ascorbic Acid 500 MG TABLET PO SCH (09:17)
[2019-01-13] MEDS: *HR* OxyCODONE Immed Rel 5 MG TABLET PO PRN ×2 (09:18→13:35)
[2019-01-13] MEDS: Cholecalciferol (D-3) 1,000 UNIT TABLET PO SCH (09:18)
[2019-01-13 11:34] VITALS: BP 120/65
[2019-01-13] MEDS ORDERED: NON-FORMULARY MEDICATION 1 EACH EACH (Alendronate Sodium 70 MG) PO SCH (14:04)
== END 2019-01-13 14:30 | disposition other institution (70) ==
LOC: 3NENU 12:01 → SAMDAY 12:01 → 3NENU 17:58
PROVIDERS: ADMIT Orthopaedic Surgery; ATTEND Orthopaedic Surgery